=== PATIENT | male | born 1970 | race Asian ===

== ENCOUNTER 2019-06-14 18:10 | Emergency (ER) | payer OTHER ==
[2019-06-14 18:14] VITALS: PULSE 70; TEMP 98; BMI 30.6
--- NOTE | 2019-06-14 18:21 | PDOC ---
Post Exposure HPI - General Chief Complaint: Blood/Body Fluid Exposure SJR Stated Complaint: NEEDLE STICK Time Seen by Provider: 06/14/19 18:13 History Source: Patient - History of Present Illness Timing: this afternoon Severity: mild Exposed Location: Right: Finger(s) (distal phalanx of R 4th finger) Past History - Past Medical History Allergies/Adverse Reactions: Allergies Allergy/AdvReac Type Severity Reaction Status Date / Time No Known Allergies Allergy Verified 06/14/19 18:13 Home Medications: Ambulatory Orders Aspirin [ASA -] 325 mg PO DAILY 06/14/19 Escitalopram Oxalate [Lexapro -] 15 mg PO DAILY 06/14/19 Flecainide Acetate [Tambacor -] 50 mg PO BID 06/14/19 Nebivolol HCl [Bystolic] 15 mg PO DAILY 06/14/19 Olmesartan/Amlodipin/Hcthiazid [Tribenzor 20-5-12.5 mg Tablet] 1 each PO DAILY 06/14/19 COPD: No HTN: No - Psycho Social/Smoking Cessation Hx Smoking History: Never smoked Review of Systems - Review of Systems Constitutional: No: Chills, Fever Integumentary: Yes: Other (no obvious puncture wound) *Physical Exam - Vital Signs Last Vital Signs Temp Pulse Resp BP Pulse Ox 98 F 70 18 170/94 98 06/14/19 18:11 06/14/19 18:11 06/14/19 18:11 06/14/19 18:11 06/14/19 18:11 - Physical Exam General Appearance: Yes: Appropriately Dressed. 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 Pt works as a neurologist at [employer] and states after using a needle similar to an acupuncture needle, to do an EMG on a patient at 4pm today, the needle struck his R 4th digit. States he was wearing gloves at the time of incident. Site did not bleed spontaneously and has since cleaned site with alcohol and Betadine. [facility] tetanus vaccine is up-to-date and has been vaccinated against hepatitis B. [facility] source patient known to have history of hep C virus and was negative for the HIV virus 2 years ago. [facility] he sent off HIV test on source patient [facility] today and follow-up on results. Pt well-appearing and stable with no obvious puncture wound. Baseline testing done. Risk of HIV and hepatitis exposure discussed with patient in length. PEP was offered to patient who accepted. Pt to continue to follow-up with ID Discharge - Discharge Information Problems reviewed: Yes Clinical Impression/Diagnosis: Needlestick injury accident with exposure to body fluid Condition: Good Disposition: HOME - Follow up/Referral - Patient Discharge Instructions Patient Printed Discharge Instructions: How to Handle Body Fluid Exposure -- Healthcare Worker Additional Instructions: You have decided to take PEP Take meds as prescribed as soon as possible and continue to follow-up with Dr. Price of ID Also follow-up with source patient's HIV
[2019-06-14] MEDS ORDERED: HIV POST EXPOSURE PROPHYLAXIS KIT PO ONE (18:24)
[2019-06-14] MEDS ORDERED: EMTRICITABINE 200MG/TENOFOVIR 300MG PO ONE (18:39)
[2019-06-14] MEDS ORDERED: RALTEGRAVIR POTASSIUM 400 MG TAB PO ONE (18:39)
[2019-06-14 18:53] VITALS: BP 141/85
== END 2019-06-14 18:42 | disposition home or self-care (01) ==
LOC: JER 18:10
DX: Z77.21 Contact with and (suspected) exposure to potentially hazardous body fluids (principal); W46.1XXA Contact with contaminated hypodermic needle, initial encounter; Y93.89 Activity, other specified; Y92.89 Other specified places as the place of occurrence of the external cause; Y99.0 Civilian activity done for income or pay
CPT/HCPCS: 36415; 86317; 86704; 86706; 86803; 87340; 87389; 99282-25

== ENCOUNTER 2021-06-06 11:18 | Emergency (ER) | payer OTHER ==
[2021-06-06 11:57] LABS: ACTIVATED PTT 26.3 SECONDS (25.2-36.5)
[2021-06-06 12:01] LABS: INR 1.47 (0.83-1.09); PROTHROMBIN TIME (PATIENT) 16.3 SEC (9.7-13.0)
[2021-06-06 12:08] VITALS: BMI 28.0
[2021-06-06 12:13] LABS: ALBUMIN 3.8 g/dl (3.4-5.0); BILIRUBIN,TOTAL 0.8 mg/dl (0.2-1); CALCIUM 9.8 mg/dl (8.5-10); CREATININE 1.1 mg/dl (0.55-1.3); TOT PROT 6.6 g/dl (6.4-8.2)
[2021-06-06] MEDS ORDERED: SODIUM CHLORIDE 0.9% 1000 ML INFUS.BAG IV ONE ×2 (12:17→14:14)
[2021-06-06] MEDS ORDERED: PHENAZOPYRIDINE HCL 100 MG TABLET (FP) PO ONE (12:17)
[2021-06-06] MEDS ORDERED: PHENAZOPYRIDINE HCL 100 MG TABLET (FP) ONE (12:19)
[2021-06-06 12:30] LABS: AMORP URATES 1+ /hpf (NONE SEEN); EPITHELIAL CELLS FEW /hpf
[2021-06-06 13:09] LABS: BASO % 0.6 % (0-2.0); EOS % 0.5 % (0-4.5); HEMATOCRIT 44.2 % (35.4-49); HEMOGLOBIN 14.9 GM/dL (11.7-16.9); LYMPH % 18.4 % (8-40); MCH 26.9 pg (25.7-33.7); MCHC 33.6 g/dl (32.0-35.9); MEAN PLT VOLUME 8.4 fl (7.5-11.1); MONO % 12.7 % (3.8-10.2); NEUT % 67.8 % (42.8-82.8); PLATELET COUNT 212 10^3/uL (134-434); RBC 5.53 M/mm3 (4.00-5.60); RDW 13.9 % (11.9-15.9); WHITE BLOOD COUNT 5.4 K/mm3 (4.0-10.0)
[2021-06-06 13:54] LABS: LACTIC ACID 2.3 mmol/L (0.4-2.0)
[2021-06-06] MEDS ORDERED: KETOROLAC TROMETHAMINE 15 MG/ML VIAL ONE (14:04)
[2021-06-06] MEDS ORDERED: KETOROLAC TROMETHAMINE 15 MG/ML VIAL IVPUSH ONE (14:04)
[2021-06-06 15:01] VITALS: BP 129/78; PULSE 70; TEMP 98.1
== END 2021-06-06 15:12 | disposition home or self-care (01) ==
LOC: FER 11:18
PROC: 3E033GC Introduction of Other Therapeutic Substance into Peripheral Vein, Percutaneous Approach (ICD-10-PCS; principal; 2021-06-06)
DX: N41.9 Inflammatory disease of prostate, unspecified (principal)
CPT/HCPCS: 36415; 80053; 81003; 81015; 83605; 85025; 85610; 85730; 87040; 87086; 99284-25; C9803; U0003; U0005